=== PATIENT | female | born 1985 | race Caucasian/White ===

== ENCOUNTER 2019-05-17 13:59 | Emergency (ER) | payer BC, MEDICAID ==
[~2019-05-17] VITALS: Ht 165.1 cm; Wt 105.2 kg
--- NOTE | 2019-05-17 15:14 | NUR ---
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
[2019-05-17 15:17] LABS: MICROSCOPIC NOT IND
--- NOTE | 2019-05-17 15:18 | NUR ---
C/O INTERMITTENT RUQ PAIN RADIATING TO RIGHT FLANK STARTING TWO DAYS AGO. PT STATES IT GETS WORSE AFTER EATING. CONNECTED TO MONITORING. CALL LIGHT IN REACH.
[2019-05-17 15:29] LABS: CULTURE INDICATED? NO
--- NOTE | 2019-05-17 15:35 | NUR ---
US AT BEDSIDE. LABS DRAWN.
[2019-05-17 15:46] LABS: BASOPHILS # (AUTO) 0.03 x10^3/uL (0-0.1); BASOPHILS % (AUTO) 0 % (0-1); EOSINOPHILS # (AUTO) 0.15 x10^3/uL (0-0.4); EOSINOPHILS % (AUTO) 2 % (1-7); LYMPHOCYTES # (AUTO) 2.58 x10^3/uL (1-3.4); LYMPHOCYTES % (AUTO) 31 % (22-44); MD NO; MEAN CORPUSCULAR HEMOGLOBIN 31.7 pg (27.0-34.8); MEAN CORPUSCULAR HGB CONC 34.3 g/dL (32.4-35.8); MEAN CORPUSCULAR VOLUME 92.4 fL (80-100); MEAN PLATELET VOLUME 7.1 fL (7.4-10.4); MONOCYTES # (AUTO) 0.39 x10^3/uL (0.2-0.8); MONOCYTES % (AUTO) 5 % (2-9); NEUTROPHILS # (AUTO) 5.29 x10^3/uL (1.8-6.8); NEUTROPHILS % (AUTO) 63 % (42-75); PLATELET COUNT 307 x10^3/uL (130-400); RED BLOOD COUNT 4.24 x10^6/uL (3.82-5.3); RED CELL DISTRIBUTION WIDTH 13.3 % (9.6-15.2)
[2019-05-17 15:51] LABS: ALANINE AMINOTRANSFERASE 24 U/L (12-78); ALBUMIN 4.1 g/dL (3.4-5.0); ANION GAP 8 mmol/L (5-15); CALCIUM 8.9 mg/dL (8.5-10.1); CHLORIDE 106 mmol/L (98-107); CREATININE 0.79 mg/dL (0.55-1.02)
[2019-05-17 15:56] LABS: ALKALINE PHOSPHATASE 41 U/L (45-117); BILIRUBIN,TOTAL 0.4 mg/dL (0.2-1.0); TOTAL PROTEIN 8.1 g/dL (6.4-8.2)
[2019-05-17 16:05] VITALS: BP 131/70
--- NOTE | 2019-05-17 16:06 | NUR ---
PT RESTING COMFORTABLY ON GURNEY. KARLA.
--- NOTE | 2019-05-17 16:07 | NUR ---
ALL RESULTS ARE BACK AT THIS TIME. CHART UP FOR RECHECK.
[2019-05-17] MEDS ORDERED: MAALOX/HYOSCYAMINE/LIDOCAINE 45 ML BTL ONE (16:29)
[2019-05-17] MEDS ORDERED: MAALOX/HYOSCYAMINE/LIDOCAINE 45 ML BTL PO ONE (16:30)
--- NOTE | 2019-05-17 16:33 | NUR ---
MEDS ADMIN PER JUL.
== END 2019-05-17 17:27 | disposition home or self-care (01) ==
LOC: ED 17:08
DX: K29.00 Acute gastritis without bleeding (principal); F17.200 Nicotine dependence, unspecified, uncomplicated; Z98.890 Other specified postprocedural states
CPT/HCPCS: 36415; 76700; 80053; 81003; 83690; 84703; 85025; 99284